=== PATIENT | female | born 1950 | race Caucasian/White ===

== ENCOUNTER 2022-07-30 13:09 | Emergency (ER) | payer MEDICARE ==
[~2022-07-30] VITALS: Ht 167.6 cm; Wt 84.1 kg
[2022-07-30 13:13] VITALS: BP 173/91
--- NOTE | 2022-07-30 13:22 | NUR ---
attempt ekg, pt to CT
[2022-07-30] MEDS ORDERED: diazepam 5mg tablet PO ONE (15:00)
[2022-07-30] MEDS ORDERED: ondansetron 4mg rapidly disintigrating tab PO ONE (15:00)
[2022-07-30] MEDS ORDERED: DIAZ5TAB22 PO (15:42)
[2022-07-30] MEDS ORDERED: ONDA4TAB12 PO (15:42)
== END 2022-07-30 17:20 | disposition home or self-care (01) ==
LOC: ER 13:10
DX: S06.0X0A Concussion without loss of consciousness, initial encounter (principal); M25.511 Pain in right shoulder; S00.03XA Contusion of scalp, initial encounter; Z88.5 Allergy status to narcotic agent; W11.XXXA Fall on and from ladder, initial encounter; Y93.89 Activity, other specified; Y92.89 Other specified places as the place of occurrence of the external cause; Y99.8 Other external cause status
CPT/HCPCS: 70450; 72125; 73030; 93005; 99284